=== PATIENT | male | born 1985 | race Caucasian/White ===

== ENCOUNTER 2017-08-10 11:31 | Emergency (ER) | payer OTHER ==
[~2017-08-10] VITALS: Ht 167.6 cm; Wt 68.0 kg
[2017-08-10 11:57] VITALS: BP 124/76; PULSE 80; RESP 16; TEMP 98.8; O2SAT 97
[2017-08-10] MEDS ORDERED: SODIUM CHLORIDE 0.9% FLUSH 10 ML FLUSH IV FLUSH PRN (12:15)
--- NOTE | 2017-08-10 12:17 | PD ---
HPI Chief Complaint: Eye Problems/Injury Time Seen by Provider: 12:11 Travel History International Travel<30 days: No Contact w/Intl Traveler<30days: No Traveled to known affect area: No History of Present Illness HPI Patient comes in complaining of bilateral eye pain ongoing for a week. Left greater than right. Patient reports that he awoke with pain. Pain is a burning pulsating sensation is worse with certain movement of his eyes. Patient been using [id number] eyedrops and eyewash with no improvement of symptoms. Patient reports blurring vision in his left eye with this. Patient denies any known injury, foreign body sensation, or contact lens use. Denies any crusting or discharge. Denies any fevers or weight loss. Patient feels the right is somewhat better, but left is not getting any better. [facility] Past Medical History Medical History: Denies Significant Hx Diminished Hearing: No Tetanus Vaccination: Unknown Past Surgical History Surgical History: No Previous Surgery Social History Alcohol Use: Yes (RARE) Tobacco Use: Yes (1/2 PPD) Substance Use: No Allergies-Medications (Allergen,Severity, Reaction): Coded Allergies: No Known Allergies (Unverified , 08/10/17) Reported Meds & Prescriptions Reported Meds & Active Scripts Active Erythromycin Opth Oint 5 Mg/Gm Oint 1 Applic EACH EYE BID Review of Systems Except as stated in HPI: all other systems reviewed are Neg Physical Exam Narrative GENERAL: Well-developed, well nourished, in no acute distress, and non-ill appearing. SKIN: Focused skin assessment warm and dry. HEAD: Atraumatic. Normocephalic. EYES: Pupils equal and round. EOMI. No scleral icterus. Mild injection bilaterally without drainage. ENT: No nasal bleeding or discharge. Mucous membranes pink and moist. NECK: Trachea midline. Supple. No nuclear rigidity. RESPIRATORY: No accessory muscle use. No respiratory distress. MUSCULOSKELETAL: No obvious deformities. No clubbing. No cyanosis. No edema. Full range of motion. NEUROLOGICAL: Awake and alert. No obvious cranial nerve deficits. Motor grossly within normal limits. Normal speech. PSYCHIATRIC: Appropriate mood and affect; insight and judgment normal. Data Data Last Documented VS Vital Signs Date Time Temp Pulse Resp B/P (MAP) Pulse Ox O2 Delivery O2 Flow Rate FiO2 08/10/17 15:02 08/10/17 14:01 98.8 74 18 100 Room Air Orders Orders Basic Metabolic Panel (Bmp) (08/10/17 12:13) Complete Blood Count With Diff (08/10/17 12:13) Iv Access Insert/Monitor (08/10/17 12:13) Sodium Chloride 0.9% Flush (Ns Flush) (08/10/17 12:15) Ed Poc Ultrasound (08/10/17 ) Ct Facial Bones W/O Iv Cont (08/10/17 ) Proparacaine 0.5% Opth Soln (Alcaine 0.5 (08/10/17 14:30) Ed Discharge Order (08/10/17 14:51) Labs Laboratory Tests Test 08/10/17 12:25 White Blood Count 6.8 TH/MM3 Red Blood Count 4.23 MIL/MM3 Hemoglobin 12.9 GM/DL Hematocrit 37.6 % Mean Corpuscular Volume 89.0 FL Mean Corpuscular Hemoglobin 30.6 PG Mean Corpuscular Hemoglobin Concent 34.4 % Red Cell Distribution Width 13.3 % Platelet Count 127 TH/MM3 Mean Platelet Volume 6.0 FL Neutrophils (%) (Auto) 30.0 % Lymphocytes (%) (Auto) 56.0 % Monocytes (%) (Auto) 7.6 % Eosinophils (%) (Auto) 4.8 % Basophils (%) (Auto) 1.6 % Neutrophils # (Auto) 2.0 TH/MM3 Lymphocytes # (Auto) 3.9 TH/MM3 Monocytes # (Auto) 0.5 TH/MM3 Eosinophils # (Auto) 0.3 TH/MM3 Basophils # (Auto) 0.1 TH/MM3 CBC Comment DIFF FINAL Differential Comment Blood Urea Nitrogen 9 MG/DL Creatinine 0.84 MG/DL Random Glucose 92 MG/DL Calcium Level 8.3 MG/DL Sodium Level 136 MEQ/L Potassium Level 3.9 MEQ/L Chloride Level 101 MEQ/L Carbon Dioxide Level 29.2 MEQ/L Anion Gap 6 MEQ/L Estimat Glomerular Filtration Rate 107 ML/MIN MDM Medical Decision Making Medical Screen Exam Complete: Yes Emergency Medical Condition: Yes Interpretation(s) Last Impressions Maxillofacial CT 08/10/17 0000 Signed Impressions: Service Date/Time: Thursday, August 10, 2017 13:30 - CONCLUSION: 1. No significant abnormality involving the left orbit identified. 2. There are some scattered, nonspecific node seen in the jugular bessie chains bilaterally. The largest node on the right measures 1.5 cm in transverse dimension. The largest node identified on the left measures 1.3 cm in transverse dimension. Kelvin Schultz MD Differential Diagnosis Over cellulitis, preseptal cellulitis, conjunctivitis, orbital abscess Narrative Course Patient with mild conjunctivitis. No evidence of foreign body by history or exam. No history to suspect corneal ulceration as well. There is no evidence of iritis, glaucoma, preseptal cellulitis, periorbital or orbital cellulitis. Will place patient on ophthalmologic antibiotics for nonspecific conjunctivitis. This was discussed with the patient. The patient was instructed to follow up with their physician or return here if worsened, increased pain, decreased vision, swelling around the eye or as needed. Ophthalmology referral was given if persists. The patient agreed with plan. Patient in no obvious distress upon re-evaluation. All pertinent laboratory/ Radiology result(s) discussed with patient. Discussed patient with Dr. Naqvi prior to discharge, who saw and evaluated the patient and is in agreement with plan of care and disposition. Any questions/concerns in reference to patient diagnosis/condition discussed and clarified prior to patient's discharge. 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 Instructed patient to return to ED immediately, if symptoms return/worsen. Patient showed understanding of above instructions. Further instructions and recommendations were detailed in discharge paperwork. Patient ambulated without difficulty out of ED at discharge. Procedures Procedure Narrative Verbal consent was obtained. Affected eye was anesthetized using proparacaine. Fluorescein staining and Wood lamp exam performed with no uptake seen. Negative Henrique sign. No hyphema, hyperemia, or rust ring. Eyelid was everted with no foreign body noted. No tenderness bilateral temporal arteries to palpation. Patient tolerated procedure well. Diagnosis Primary Impression: Bilateral conjunctivitis Qualified Codes: H10.33 - Unspecified acute conjunctivitis, bilateral Additional Impression: Enlarged lymph node in neck Referrals: Danielle Polanco MD [facility] Throat Specialist Patient Instructions: Conjunctivitis (ED), General Instructions, Lymphadenopathy (ED) Additional Instructions: Follow-up with your primary care physician, toy department manager, in ENT for reevaluation next week. Take all medication as prescribed. Return to the emergency department if symptoms get worse. Med/Other Pt SpecificInfo: Prescription(s) given Scripts Erythromycin Opth Oint (Erythromycin Opth Oint) 5 Mg/Gm Oint 1 APPLIC EACH EYE BID for Infection, #1 TUBE 0 Refills Prov: Roxana Naqvi 08/10/17 Disposition: 01 DISCHARGE HOME Condition: Stable Wyatt Chamberlain Aug 10, 2017 12:17
[2017-08-10 12:34] LABS: BASOPHIL # 0.1 TH/MM3 (0-0.2); BASOPHIL % 1.6 % (0.0-2.0); EOSINOPHIL # 0.3 TH/MM3 (0-0.4); EOSINOPHIL % 4.8 % (0.0-4.0); HEMATOCRIT 37.6 % (39.0-51.0); HEMOGLOBIN 12.9 GM/DL (13.0-17.0); LYMPHOCYTE # 3.9 TH/MM3 (1.0-4.8); MEAN CORPUSCULAR HEMOGLOBIN 30.6 PG (27.0-34.0); MEAN CORPUSCULAR HGB CONC 34.4 % (32.0-36.0); MONO % 7.6 % (0.0-8.0); MONOCYTE # 0.5 TH/MM3 (0-0.9); PLATELET COUNT 127 TH/MM3 (150-450); RED BLOOD COUNT 4.23 MIL/MM3 (4.50-5.90); RED CELL DISTRIBUTION WIDTH 13.3 % (11.6-17.2); WHITE BLOOD COUNT 6.8 TH/MM3 (4.0-11.0)
[2017-08-10 12:52] LABS: CALCIUM 8.3 MG/DL (8.5-10.1)
[2017-08-10 12:53] LABS: BICARBONATE 29.2 MEQ/L (21.0-32.0)
[2017-08-10 12:56] LABS: CREATININE 0.84 MG/DL (0.60-1.30)
--- NOTE | 2017-08-10 13:52 | RADRPT ---
EXAM DATE/TIME: 08/10/2017 13:30 [facility] COMPARISON: No previous studies available for comparison. INDICATIONS : Left eye pain, blurry vision and redness x 1 week, worse with eye movement. Cephalgia. Evaluate for orbital cellulitis. RADIATION DOSE: 29.85 CTDIvol (mGy) MEDICAL HISTORY : None SURGICAL HISTORY : None. ENCOUNTER: Initial ACUITY: 1 week PAIN SCORE: 7/10 LOCATION: Left eye TECHNIQUE: Volumetric scanning of the facial bones was performed. Using automated exposure control and adjustme nt of the mA and/or kV according to patient size, radiation dose was kept as low as reasonably achiev able to obtain optimal diagnostic quality images. DICOM format image data is available electronicall y for review and comparison. FINDINGS: ORBITS: The orbital and infraorbital osseous structures are intact. The retroconal structures have a normal configuration. No radiopaque foreign bodies are seen. NASAL BONE: The nasal bone and maxillary spine are intact ZYGOMATIC ARCHES: Symmetric without evidence of fracture. SINUSES: The maxillary, ethmoid and frontal sinuses are intact. No air-fluid levels seen. NASAL CAVITY: The nasal septum is intact and midline. The lacrimal ducts are intact. SOFT TISSUES: No radiopaque foreign bodies seen. No soft-tissue swelling is seen. There are some scattered, n onspecific jugular nodes bilaterally. INTRACRANIAL: No intracranial air seen. CRIBIFORM PLATE: Grossly intact. CONCLUSION: 1. No significant abnormality involving the left orbit identified. 2. There are some scattered, nonspecific node seen in the jugular bessie chains bilaterally. The large st node on the right measures 1.5 cm in transverse dimension. The largest node identified on the left measures 1.3 cm in transverse dimension. Kelvin Schultz MD on August 10, 2017 at 13:46 Board Certified Radiologist. This report was verified electronically.
[2017-08-10 14:01] VITALS: BP 119/66; PULSE 74; RESP 18; TEMP 98.8; O2SAT 100
[2017-08-10] MEDS ORDERED: PROPARACAINE HCL 0.5% OPHT SOLN 15 ML BTL EACH EYE ONE (14:30)
[2017-08-10] MEDS ORDERED: ERYTOIN10 EACH EYE (14:50)
== END 2017-08-10 15:03 | disposition home or self-care (01) ==
LOC: PHEFT 11:31
DX: H10.33 Unspecified acute conjunctivitis, bilateral (principal); R59.0 Localized enlarged lymph nodes; F17.210 Nicotine dependence, cigarettes, uncomplicated
CPT/HCPCS: 70486; 80048; 85025; 99285

== ENCOUNTER 2017-09-20 10:33 | Emergency (ER) | payer SELFPAY ==
[~2017-09-20] VITALS: Ht 167.6 cm; Wt 64.0 kg
[~2017-09-20 10:33] MED LIST: ERYTOIN10 EACH EYE
[2017-09-20 10:35] VITALS: BP 147/90; PULSE 80; RESP 14; TEMP 98.9; O2SAT 100
--- NOTE | 2017-09-20 11:17 | PD ---
HPI Chief Complaint: Back/ Neck Pain or Injury Time Seen by Provider: 11:07 Travel History International Travel<30 days: No Contact w/Intl Traveler<30days: No Traveled to known affect area: No History of Present Illness HPI 31-year-old male presents the emergency Department with a five-year history of lumbar back pain which is been off and on and reportedly worsening over the past week. Patient has no specific injury. He does have a history of occasional IV drug use in the past. He has no fever, chills, numbness, tingling , or weakness in the lower extremities. He states the pain is been progressively worsening over the past week and wakes him up occasionally at night. Not taken any medications for the has not tried heat, ice, or stretching. Pain is currently 5 out of 10. He has no urinary symptoms. He has no known drug allergies. PFSH Past Medical History Diminished Hearing: No Social History Alcohol Use: Yes (RARE) Tobacco Use: Yes (1/2 PPD) Substance Use: No Allergies-Medications (Allergen,Severity, Reaction): Coded Allergies: No Known Allergies (Unverified , 08/10/17) Reported Meds & Prescriptions Reported Meds & Active Scripts Active Erythromycin Opth Oint 5 Mg/Gm Oint 1 Applic EACH EYE BID Review of Systems Except as stated in HPI: all other systems reviewed are Neg General / Constitutional: No: Fever Eyes: No: Visual changes HENT: No: Headaches Cardiovascular: No: Chest Pain or Discomfort Respiratory: No: Shortness of Breath Gastrointestinal: No: Abdominal Pain Genitourinary: No: Dysuria Musculoskeletal: Positive: Myalgias, Limited ROM, Pain Skin: No Rash Neurologic: No: Weakness Psychiatric: No: Depression Endocrine: No: Polydipsia Hematologic/Lymphatic: No: Easy Bruising Physical Exam Narrative GENERAL: Patient is evaluated felt to be in no acute distress. SKIN: Warm and dry. Normal color. Normal turgor. No rash. HEAD: Atraumatic. Normocephalic. EYES: Pupils equal and round. No scleral icterus. No injection or drainage. ENT: No nasal bleeding or discharge. Mucous membranes pink and moist. NECK: Trachea midline. No JVD. CARDIOVASCULAR: Regular rate and rhythm. RESPIRATORY: No accessory muscle use. Clear to auscultation. Breath sounds equal bilaterally. GASTROINTESTINAL: Abdomen soft, non-tender, nondistended. Hepatic and splenic margins not palpable. MUSCULOSKELETAL: Extremities without clubbing, cyanosis, or edema. No obvious deformities. Patient has nonspecific tenderness with palpation along the upper lumbar lower thoracic area. Range of motion is full. Strength is normal. Lower extremities are normal. Deep tendon reflexes are 2+ bilaterally NEUROLOGICAL: Awake and alert. No obvious cranial nerve deficits. Motor grossly within normal limits. Five out of 5 muscle strength in the arms and legs. Normal speech. PSYCHIATRIC: Appropriate mood and affect; insight and judgment normal. Data Data Last Documented VS Vital Signs Date Time Temp Pulse Resp B/P (MAP) Pulse Ox O2 Delivery O2 Flow Rate FiO2 09/20/17 10:35 98.9 80 14 147/90 (109) 100 MDM Medical Decision Making Medical Screen Exam Complete: Yes Emergency Medical Condition: No Differential Diagnosis Low back pain. Muscle spasm. Spinal stenosis. Narrative Course A medical screening exam was performed: At the time of evaluation the presenting medical condition was determined not to be of an emergent nature. The patient was given the option of receiving additional care, but declined. Patient was given options for additional community resources from which to obtain care. The Patient Has Been advised to seek medical attention for their presenting complaint. The patient has been advised to return to the ER at any time if an emergent condition develops. Condition: Stable Feliberto Rdz Sep 20, 2017 11:17
== END 2017-09-20 11:22 | disposition left against medical advice (07) ==
LOC: NEPK 10:33
DX: M54.5 Low back pain (principal)
CPT/HCPCS: 99281